=== PATIENT | male | born 1990 | race Caucasian/White ===

== ENCOUNTER 2024-08-25 20:56 | Emergency (ER) | payer MEDICAID, SELFPAY ==
[2024-08-25] VITALS (24 sets, daily range): BP systolic 106–126; BP diastolic 67–83; PULSE 60–71; RESP 8–16; TEMP 36.9; O2SAT 94–98
--- NOTE | 2024-08-25 21:00 | RT.EKG_ITS ---
APPROVED REPORT Exam: Resting ECG Reason for Exam: Dizzy Patient Location: E HR:70 bpm ECG Measurements Heart Rate 70 AXIS MN 120 P 27 QRSd 82 QRS 45 QT 369 T 42 QTc 400 Conclusion Sinus rhythm...normal P axis, V-rate 60- 99 Sinus Rhythm. No prior. WD
--- NOTE | 2024-08-25 21:18 | W.ED.GENAD ---
Discharge Plan Discharge Details Chief Complaint: OD/Poison Primary Care Provider: Piter Mayorga ED Provider: Connie Trujillo Home Meds and New Rx's Prescriptions: No Action acetaminophen 325 mg tablet 325 mg PO Q6H PRN fluoxetine [Prozac] 40 mg capsule 40 mg PO DAILY nicotine (polacrilex) [Nicorette] 2 mg gum 2 mg buccal Q2H PRN magnesium oxide 400 mg magnesium capsule 400 mg PO DAILY L-Carnitine 500 mg tablet 1,000 mg PO TID Rx Instructions: must administer with a meal/food levetiracetam [Keppra] 1,000 mg tablet 2,000 mg PO Q12H gabapentin 100 mg capsule 100 mg PO TID fluoxetine 20 mg capsule 20 mg PO DAILY Rx Instructions: take with 40mg cap Eliquis 2.5 mg tablet 2.5 mg PO BID divalproex [Depakote] 500 mg tablet,delayed release (DR/EC) 1,500 mg PO BID clonidine HCl 0.1 mg tablet 0.1 mg PO BID PRN Rx Instructions: for anxiety Brixadi 64 mg/0.18 mL solution, extended rel syringe 64 mg subcut Q28D baclofen 5 mg tablet 5 mg PO TID PRN amantadine HCl 100 mg capsule 100 mg PO BID HPI General Date/Time Provider Initiated Documentation: 08/25/24 20:58. HPI Narrative: Marco is a 33-year-old male with hemorrhagic stroke, AVM, and seizure disorder presenting with Tylenol overdose. Accompanied by . An hour ago, inadvertently consumed 8-12 Tylenol tablets, mistaking them for midday medications. Has not taken evening medications. Reports fatigue, mild nausea, and induced vomiting 40 minutes ago. reports he said he Denies pain, headaches, dizziness, tinnitus, chest pain, shortness of breath, recent illness such as congestion/sore throat/cough, vomiting, or abdominal pain. Normal bowel and bladder functions. No recent illnesses. 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 Shunt placed from ventricles. Last seizure 3 months ago, characterized by full-body shaking. History of substance use disorder, no accidental overdoses in 11 years. On Brixadi 60 mg weekly. No ETOH use,in recovery x 2-3 years. Heart murmur, IVC filter, 2 blood clots in right leg (provoked from immobility while in coma), on Eliquis 2.5 mg twice daily. Related Data Home Medications ?Medication ?Instructions ?Recorded ?Confirmed acetaminophen 325 mg tablet 325 mg PO Q6H PRN 07/10/24 08/25/24 amantadine HCl 100 mg capsule 100 mg PO BID 07/10/24 08/25/24 apixaban 2.5 mg tablet (Eliquis) 2.5 mg PO BID 07/10/24 08/25/24 baclofen 5 mg tablet 5 mg PO TID PRN 07/10/24 08/25/24 buprenorphine 64 mg/0.18 mL 64 mg subcut Q28D 07/10/24 08/25/24 solution,exten.rel.subcutaneous syringe (Brixadi Monthly) clonidine HCl 0.1 mg tablet 0.1 mg PO BID PRN 07/10/24 08/25/24 divalproex 500 mg tablet,delayed 1,500 mg PO BID 07/10/24 08/25/24 release (Depakote) fluoxetine 20 mg capsule 20 mg PO DAILY 07/10/24 08/25/24 fluoxetine 40 mg capsule (Prozac) 40 mg PO DAILY 07/10/24 08/25/24 gabapentin 100 mg capsule 100 mg PO TID 07/10/24 08/25/24 levetiracetam 1,000 mg tablet 2,000 mg PO Q12H 07/10/24 08/25/24 (Keppra) levocarnitine 500 mg tablet 1,000 mg PO TID 07/10/24 08/25/24 (L-Carnitine) magnesium oxide 400 mg PO DAILY 07/10/24 08/25/24 nicotine (polacrilex) 2 mg gum 2 mg buccal Q2H PRN 07/10/24 08/25/24 (Nicorette) Allergies Allergy/AdvReac Type Severity Reaction Status Date / Time penicillin V Allergy Unknown Hives Unverified 08/25/24 21:04 General Stated Complaint: OD/Poison LINDA: 3 Exam Narrative Exam Narrative: General Appearance: Normal. Marco is alert and oriented Vital signs: Within normal limits. HEENT: Oropharynx clear. Moist mucous membranes. Respiratory: Breath sounds clear bilaterally. Easy work of breathing, able to speak in full sentences Cardiac: Regular rate and rhythm, mild murmur noted. Back, Musculoskeletal: Good strength in bilateral upper and lower extremities (5/5). Skin: Warm and dry, no rash. Neurological: Cranial nerves II-XII intact. No dizziness while sitting up. Mild tremor noted to upper extremities, baseline per . Moving all extremities equally. Psychiatric: Normal. Course Vital Signs Vital signs: Vital Signs Temperature 36.9 C 08/25/24 20:57 Pulse 71 08/25/24 20:57 Respiratory Rate 16 08/25/24 20:57 Blood Pressure 116/80 08/25/24 20:57 Pulse Oximetry 97 08/25/24 20:57 Temperature 36.9 C 08/25/24 20:57 Temperature Source Oral 08/25/24 20:57 Pulse 71 08/25/24 20:57 Respiratory Rate 11 L 08/25/24 21:15 Respiratory Effort Normal, Non-Labored 08/25/24 21:15 Respiratory Depth Normal 08/25/24 21:15 Respiratory Pattern Normal 08/25/24 21:15 Blood Pressure 116/80 08/25/24 20:57 Blood Pressure Position Supine 08/25/24 20:57 Pulse Oximetry 97 08/25/24 20:57 Oxygen Delivery Method Room Air 08/25/24 20:57 Oxygen Flow Rate 0 08/25/24 20:57 Pain Level 0 08/25/24 20:57 Medical Decision Making Initial Assessment: Accidental ingestion of 8-12 Tylenol tablets an hour ago. Reports fatigue and dizziness. Induced vomiting 40 minutes ago. Differential Diagnosis includes but is not limited to: - Tylenol overdose: Accidental ingestion of 8-12 tablets. Comprehensive workup including blood tests and urinalysis. Consultation with Poison Control. Antidote administration if acetaminophen levels are toxic. -Other drug overdose - Electrolyte imbalance, dehydration - Shunt malfunction, intracranial hemorrhage - Viral illness, anxiety I independently interpreted the following tests: EKG shows normal sinus rhythm, rate 70, normal intervals. No changes consistent with acute ischemia. CBC shows mild anemia, H&H 12.5/37.1. Slightly elevated BUN to creatinine ratio, 33/1.3 today. Valproic acid level within therapeutic range, 60.7. Initial APAP 58. PT/INR and APTT all reassuring. While in the emergency department Marco received 1 L normal saline for rehydration. CT head and shunt series x-rays performed, no acute abnormality noted. Consulted with poison control, patient's estimated Tylenol consumption was 77 mg/kg, well under the toxic dose. Repeat APAP recommended at midnight, if less than 150 patient is cleared for discharge home. Handoff report given to Dr. Sim, overnight attending. Repeat APAP pending. While resting in the emergency department Marco did report that he has started to feel better. Patient consented to the use of [facility] Imaging Data Radiologic Study: Radiologist's impression: PROCEDURE INFORMATION: Exam: XR Shunt Series With 4 XR Procedures Exam date and time: 08/25/2024 10:13 PM Age: 33 years old Clinical indication: Other: Tired, dizzy, PT w shunt; Prior surgery; Surgery date: 6+ months TECHNIQUE: Imaging protocol: XR Shunt Series was performed with skull less than 4 views, neck 1 view, chest 1 view, and abdomen 1 view. COMPARISON: CT HEAD WO 08/25/2024 10:01 PM FINDINGS: Tubes, catheters and devices: Ventriculoperitoneal catheter is present. Catheter is seen on the right. The catheter is seen coursing through the neck and chest. The distal catheter tip in the abdomen. No kinking. No breakage. Paranasal sinuses: Visualized paranasal sinuses are well aerated. Lungs: No consolidations. Gastrointestinal tract: Bowel is unremarkable. Bones/joints: Normal. No fracture. No dislocation. Soft tissues: Unremarkable. IMPRESSION: NEWS CORRESPONDENT shunt in satisfactory position as described. Radiologic Study #2: Radiologist's impression: PROCEDURE INFORMATION: Exam: CT Head Without Contrast Exam date and time: 08/25/2024 10:01 PM Age: 33 years old Clinical indication: Other: Dizzy, tired, apap od? PT with shunt, h/o stroke TECHNIQUE: Imaging protocol: Computed tomography of the head without contrast. COMPARISON: No relevant prior studies available. FINDINGS: Brain: Cerebral sulci show bilateral symmetry with no supratentorial mass or mass effect detected. Periventricular encephalomalacia is seen along the margin of the trigone left lateral ventricle in the left temporoparietal region and may relate to previous ischemic or traumatic insult. Focal tract is noted involving the left frontal lobe related to previous ventriculostomy catheter placement. Brainstem and cerebellum are unremarkable. There is no evidence of acute transcortical infarction or recent intracranial hemorrhage. Cerebral ventricles: There is mild ex vacuo dilatation involving the trigone left ventricle in association with encephalomalacia described above and there is no midline shift or hydrocephalus. Ventriculostomy catheter now enters the skull via right frontal artem hole with catheter tip seen near the right foramen of Monro. Paranasal sinuses: Grossly clear throughout. Mastoid air cells: Grossly clear bilaterally. Bones: Bifrontal artem holes are noted and no acute fractures are identified. Soft tissues: Unremarkable. IMPRESSION: Periventricular encephalomalacia is seen along the margin of the trigone left lateral ventricle in the left temporoparietal region and may relate to previous ischemic or traumatic insult. There is no evidence of acute transcortical infarction or recent intracranial hemorrhage PFSH All Active Problems (Updated 07/10/24 @ 13:42 by Maggie Bass RN) Thalamic hemorrhage with stroke (Acute) Medical History Generalized convulsive seizure Cerebral parenchymal hemorrhage Stroke 07/04/2017 History of heroin abuse Alcoholism Cauliflower ear, left ear Migraines Depression Chews tobacco Cigarette smoker Surgical History (Updated 07/10/24 @ 13:42 by Maggie Bass RN) Status post ventricular shunt placement 04/2024 right shunt placement History of hernia repair 1994 Family History (Updated 07/10/24 @ 13:47 by Maggie Bass RN) Mother Alcohol use disorder Father Alcohol use disorder Son No problems noted. Brother No problems noted. Sister No problems noted. Sister No problems noted. Social History Smoking risk assessment performed?: No Alcohol Intake: former Drug use: Current Sobriety
[2024-08-25 21:49] LABS: BE (Venous) 8 mmol/L (-2-3); HCO3 (Venous) 32 mmol/L (23-28); O2 Sat (Venous) 91 %; TCO2 (Venous) 29 mmol/L (24-29); pCO2 (Venous) 49 mmHg (41-51); pH (Venous) 7.43 (7.31-7.41); pO2 (Venous) 61 mmHg
[2024-08-25 21:50] LABS: Abs Immature Grans 0.06 10^3/uL (0.0-0.06); Absolute Basophil Count 0.05 10^3/uL (0.0-0.2); Absolute Eosinophil Count 0.48 10^3/uL (0.0-0.7); Absolute Lymphocyte Count 2.05 10^3/uL (1.2-3.4); Absolute Monocyte Count 0.79 10^3/uL (0.1-0.8); Absolute Neutrophil Count 1.79 10^3/uL (1.2-6.7); Eosinophils % 9.2 %; HCT 37.1 % (40.0-50.0); HGB 12.5 g/dL (13.5-17.5); Immature Grans % 1.1 %; Lymphocytes % 39.3 %; MCH 29.6 pg (27.0-33.0); MCHC 33.7 % (32.0-36.0); MCV 88 fL (80-95); Monocytes % 15.1 %; Neutrophils % 34.3 %; Platelet Count 168 10^3/uL (130-400); RBC 4.22 10^6/uL (4.36-5.78); RDW 13.4 % (11.8-14.1); WBC 5.22 10^3/uL (4.4-10.8)
[2024-08-25 22:06] LABS: INR 1.1 (0.9-1.1); PTT Activated 24.3 sec (20.6-30.2); Prothrombin Time 10.7 sec (9.1-11.1)
--- NOTE | 2024-08-25 22:06 | DI.CT_ITS ---
Exam(s) CT HEAD WO EXAM: CT HEAD WO CLINICAL HISTORY: dizzy, tired, APAP OD? pt with shunt, h/o stroke. TECHNIQUE: Imaging Protocol: Axial computed tomography images with coronal and sagittal reformatted images were created and reviewed COMPARISON: No exams were available for comparison FINDINGS: Ventricles and Extra axial spaces: There is slight asymmetry in size of the lateral ventricles ventricles, left mildly larger than right. There is a right should sided ventriculoperitoneal shunt. The tip of the shunt is seen in the right lateral ventricle near the foramen of Monro. Hemorrhage: None. Cerebral parenchyma: No evidence of an acute territorial infarct. No acute mass effect is present. There is mild encephalomalacia along the left lateral ventricle. There is a tract in the left frontal parietal lobe which may represent a previous ventriculoperitoneal shunt tract. Midline shift: None. Brainstem/Cerebellum: Normal. Calvarium: Normal. There are bilateral frontal artem holes present. Visualized Paranasal sinuses/Mastoids: Clear. Soft Tissues: Unremarkable. IMPRESSION: 1. No acute intracranial process. 2. The preliminary [facility] report was reviewed. RADIATION DOSE DELIVERED: 822.03mGy.cm Total DLP DATA REPOSITORY: All CT scans at this facility are submitted to the National Radiology Data Registry (NRDR) Dose Index Registry (DIR) with the [employer] (A[employer]). RADIATION OPTIMIZATION: All CT scans at this facility use at least one of these dose optimization techniques: automated exposure control; mA and/or kV adjustment per patient size (includes targeted exams where dose is matched to clinical indication); or iterative reconstruction.
[2024-08-25 22:12] LABS: ALT 26 U/L (16-63); AST 14 U/L (15-37); Albumin 3.4 g/dL (3.4-5.0); Alkaline Phosphatase 86 U/L (46-116); Anion Gap 4.8 mmol/L (3-11); BUN 33 mg/dL (7-18); Bilirubin, Total 0.2 mg/dL (0.2-1.0); CO2 33.2 mmol/L (21.0-32.0); CREATININE 1.3 mg/dL (0.70-1.30); Calcium 8.7 mg/dL (8.5-10.1); Chloride 105 mmol/L (98-107); Estimated GFR 73.47 (mL/min/1.73m2); Glucose 98 mg/dL (74-106); Potassium 4.2 mmol/L (3.5-5.1); Sodium 143 mmol/L (136-145); Total Protein 6.4 g/dL (6.4-8.2)
--- NOTE | 2024-08-25 22:17 | DI.RAD_ITS ---
Exam(s) XR SHUNT SERIES EXAM: XR SHUNT SERIES CLINICAL HISTORY: tired, dizzy, pt w shunt. TECHNIQUE: 2D digital imaging was performed. COMPARISON: No exams were available for comparison Findings: SKULL: Unremarkable. No destructive osseous lesion seen. LUNGS: Clear. No pleural abnormality seen. HEART: Normal. MEDIASTINUM: Normal. BOWEL GAS PATTERN: Nondistended bowel loops. No air-fluid levels seen. ABNORMAL COLLECTIONS OF AIR: No abnormal collection of air. No pneumoperitoneum. CALCIFICATIONS: None. No radiopaque renal, ureteral, or bladder calcification. SHUNT CATHETER: Visualized portions of shunt catheter from the level of the skull to the level of the abdomen is continuous without evidence of kink or break. OTHER FINDINGS: There are bilateral iliac vein filters. IMPRESSION: 1. The ventriculoperitoneal shunt is in appropriate position. 2. There is no breakage or kinking of the shunt tubing. 3. The preliminary [facility] report was reviewed. DATA REPOSITORY: RADIATION DOSE DELIVERED:
[2024-08-25 22:18] LABS: Acetaminophen 58 ug/mL (10-30); Salicylate < 2.8 mg/dL (<2.8); VALPROIC ACID 60.7 ug/mL
--- NOTE | 2024-08-25 22:19 | DI.[facility]_ITS ---
PROCEDURE INFORMATION: Exam: CT Head Without Contrast Exam date and time: 08/25/2024 10:01 PM Age: 33 years old Clinical indication: Other: Dizzy, tired, apap od? PT with shunt, h/o stroke TECHNIQUE: Imaging protocol: Computed tomography of the head without contrast. COMPARISON: No relevant prior studies available. FINDINGS: Brain: Cerebral sulci show bilateral symmetry with no supratentorial mass or mass effect detected. Periventricular encephalomalacia is seen along the margin of the trigone left lateral ventricle in the left temporoparietal region and may relate to previous ischemic or traumatic insult. Focal tract is noted involving the left frontal lobe related to previous ventriculostomy catheter placement. Brainstem and cerebellum are unremarkable. There is no evidence of acute transcortical infarction or recent intracranial hemorrhage. Cerebral ventricles: There is mild ex vacuo dilatation involving the trigone left ventricle in association with encephalomalacia described above and there is no midline shift or hydrocephalus. Ventriculostomy catheter now enters the skull via right frontal artem hole with catheter tip seen near the right foramen of Monro. Paranasal sinuses: Grossly clear throughout. Mastoid air cells: Grossly clear bilaterally. Bones: Bifrontal artem holes are noted and no acute fractures are identified. Soft tissues: Unremarkable. IMPRESSION: Periventricular encephalomalacia is seen along the margin of the trigone left lateral ventricle in the left temporoparietal region and may relate to previous ischemic or traumatic insult. There is no evidence of acute transcortical infarction or recent intracranial hemorrhage. Dictated and Authenticated by: Yaakov Borja MD. Orderin Bryanna Rosales MD
--- NOTE | 2024-08-25 22:20 | DI.[facility]_ITS ---
PROCEDURE INFORMATION: Exam: XR Shunt Series With 4 XR Procedures Exam date and time: 08/25/2024 10:13 PM Age: 33 years old Clinical indication: Other: Tired, dizzy, PT w shunt; Prior surgery; Surgery date: 6+ months TECHNIQUE: Imaging protocol: XR Shunt Series was performed with skull less than 4 views, neck 1 view, chest 1 view, and abdomen 1 view. COMPARISON: CT HEAD WO 08/25/2024 10:01 PM FINDINGS: Tubes, catheters and devices: Ventriculoperitoneal catheter is present. Catheter is seen on the right. The catheter is seen coursing through the neck and chest. The distal catheter tip in the abdomen. No kinking. No breakage. Paranasal sinuses: Visualized paranasal sinuses are well aerated. Lungs: No consolidations. Gastrointestinal tract: Bowel is unremarkable. Bones/joints: Normal. No fracture. No dislocation. Soft tissues: Unremarkable. IMPRESSION: WAIST PRESSER shunt in satisfactory position as described. Dictated and Authenticated by: Yaakov Borja MD. Orderin Bryanna Rosales MD
[2024-08-25 22:31] LABS: COVID-19 PCR Negative (Negative); Influenza A PCR Negative (Negative); Influenza B PCR Negative (Negative); RSV PCR Negative (Negative)
[2024-08-25 22:33] LABS: Source Nasopharynx
[2024-08-25] MEDS: Normal Saline 1,000 ML 1000 ML IV (22:49)
[2024-08-26] VITALS (12 sets, daily range): BP systolic 107–118; BP diastolic 71–82; PULSE 55–68; RESP 8–12; O2SAT 96–98
[2024-08-26 01:27] LABS: Acetaminophen 29 ug/mL (10-30)
--- NOTE | 2024-08-26 01:30 | ED.PROG_ITS ---
Date of service: 08/26/24 Time of Service: 01:31 Medical Decision Making Patient had presented to ED with an accidental acetaminophen overdose. He was signed out to me pending his 4-hour acetaminophen level since time of ingestion was known. Acetaminophen draw was done at about 4-1/2 hours post ingestion. H is level is 29 well below the toxic range. He will be discharged home and can follow-up with primary care as needed. Return precautions provided. Lab Data Lab results reviewed: Yes I reviewed the patient's lab results. Lab results narrative: see MDM Discharge Plan Disposition Patient Disposition: Home Condition: Good Discharge Details Clinical Impression: Accidental acetaminophen overdose Primary Care Provider: Piter Mayorga ED Provider: Bry Sim [facility] and New Rx's Prescriptions: Continued acetaminophen 325 mg tablet 325 mg PO Q6H PRN fluoxetine [Prozac] 40 mg capsule 40 mg PO DAILY nicotine (polacrilex) [Nicorette] 2 mg gum 2 mg buccal Q2H PRN magnesium oxide 400 mg magnesium capsule 400 mg PO DAILY L-Carnitine 500 mg tablet 1,000 mg PO TID Rx Instructions: must administer with a meal/food levetiracetam [Keppra] 1,000 mg tablet 2,000 mg PO Q12H gabapentin 100 mg capsule 100 mg PO TID fluoxetine 20 mg capsule 20 mg PO DAILY Rx Instructions: take with 40mg cap Eliquis 2.5 mg tablet 2.5 mg PO BID divalproex [Depakote] 500 mg tablet,delayed release (DR/EC) 1,500 mg PO BID clonidine HCl 0.1 mg tablet 0.1 mg PO BID PRN Rx Instructions: for anxiety Brixadi 64 mg/0.18 mL solution, extended rel syringe 64 mg subcut Q28D baclofen 5 mg tablet 5 mg PO TID PRN amantadine HCl 100 mg capsule 100 mg PO BID Discharge Instructions Additional Instructions: You were seen in the ED for accidental acetaminophen overdose. Your workup overall was completely reassuring. Your 4-hour Tylenol level is well below the toxic range. Would not use Tylenol over the next 24 hours but then may use as needed. Follow-up with primary care next week if any concerns. Return to ED for any significant mental status change, abdominal pain, vomiting. Referrals: Piter Mayorga [Primary Care Provider, Medicine]
== END 2024-08-26 04:41 | disposition home or self-care (01) ==
PROVIDERS: Nurse Practitioner Family; Emergency Provider Emergency Medicine; PCP Family Medicine
DX: T39.1X1A Poisoning by 4-Aminophenol derivatives, accidental (unintentional), initial encounter (principal); Z86.73 Personal history of transient ischemic attack (TIA), and cerebral infarction without residual deficits; Z79.82 Long term (current) use of aspirin; Z79.01 Long term (current) use of anticoagulants
CPT/HCPCS: 00123; 36415; 80053; 82805; 87637; 93005; 99285; 70360; 70450; 71045; 72050; 74018; 80164; 80329; 83605; 85025; 85610; 85730; 93010; 99284